=== PATIENT | female | born 1975 | race Caucasian/White ===

== ENCOUNTER → 2016-07-09 | Outpatient (CLI) | payer OTHER | LOC: KOH-I 16:38 | DX: M25.559 Pain in unspecified hip (principal) | CPT/HCPCS: 73522 ==

== ENCOUNTER 2020-05-09 20:06 | Emergency (ER) | payer OTHER ==
[~2020-05-09 20:06] MED LIST: FLAGYL500 MG PO; LEVOFLOXACIN500 MG PO; PHENERGAN 25 MG25 M1 PO; ZOFRAN4 MG PO
[2020-05-09 23:05] LABS: HEMOGLOBIN 14.2 gm/dl (12.3-15.3); RED BLOOD COUNT 4.51 M/UL (4.00-5.10); WHITE BLOOD COUNT 5.3 K/UL (4.5-11.0)
[2020-05-09 23:23] LABS: BUN/CREATININE RATIO 19 (0-10)
[2020-05-15] MEDS ORDERED: DOXYCYCLINE HY100 MG PO (14:39)
[2020-05-15] MEDS ORDERED: DECADRON6 MG PO (14:39)
== END 2020-05-10 04:52 | disposition home or self-care (01) ==
LOC: ER1 20:06
PROVIDERS: Emergency Medicine
DX: U07.1 COVID-19 (principal); Z88.2 Allergy status to sulfonamides; Z88.5 Allergy status to narcotic agent
CPT/HCPCS: 71045; 80053; 82550; 82553; 83874; 83880; 84484; 84703; 85025; 85379; 93005; 96374; 96375; 99285; J1885; J2405; J7030; M0239; Q9967

== ENCOUNTER 2020-05-13 14:27 | Inpatient (IN) | payer OTHER ==
[~2020-05-13] VITALS: Ht 154.9 cm; Wt 82.6 kg
[2020-05-13 15:31] LABS: HEMOGLOBIN 14.6 gm/dl (12.3-15.3); RED BLOOD COUNT 4.62 M/UL (4.00-5.10); WHITE BLOOD COUNT 3.7 K/UL (4.5-11.0)
[2020-05-13 15:53] LABS: BUN/CREATININE RATIO 15 (0-10)
[2020-05-13] MEDS ORDERED: CYMBALTA60 MG PO (19:08)
[2020-05-13] MEDS ORDERED: FOLIC ACID 1 MG1 MG PO (19:09)
[2020-05-13] MEDS ORDERED: VENTOLIN HFA 66.7 GM INH (19:09)
[2020-05-13] MEDS ORDERED: LISINOPRIL-HCT1 EAC2 PO (19:10)
[2020-05-13] MEDS ORDERED: TIZANIDINE HCL4 M1 PO (19:10)
[2020-05-13] MEDS ORDERED: DESYREL 50 MG T50 MG PO (19:11)
[2020-05-13] MEDS ORDERED: HUMIRA40 MG/0.8 SQ (19:11)
[2020-05-13] MEDS ORDERED: METHOTREXATE T2.5 MG PO (19:12)
[2020-05-14 06:23] LABS: WHITE BLOOD COUNT 3.1 K/UL (4.5-11.0)
[2020-05-14 06:24] LABS: HEMOGLOBIN 12.5 gm/dl (12.3-15.3); RED BLOOD COUNT 3.97 M/UL (4.00-5.10)
[2020-05-14 06:52] LABS: BUN/CREATININE RATIO 11 (0-10)
[2020-05-14] MEDS ORDERED: LEXAPRO20 MG PO (11:47)
[2020-05-14] MEDS ORDERED: PREMARIN1.25 MG PO (11:48)
[2020-05-14] MEDS ORDERED: LISINOPRIL10 MG PO (11:54)
--- NOTE | 2020-05-15 03:10 | NUR ---
2200-PATIENT BP WAS 62/38 WITH HEART RATE OF 71, PATIENT HAD A TEMP OF 99.2, PATIENT WAS GIVEN HER NIGHT TIME MEDS AROUND 2100 THAT CONSISTED OF VIT C, ZANAFLEX, TRAZODONE.SHE WAS DIAPHORETIC AND HAD BEEN COUGHING. BP EARLIER WAS 123/78. I NOTIFIED DR VALDEZ AND SHE SAID TO GIVE PATIENT A 1L BOLUS. PATIENT WAS ALSO PUT IN [place] POSITION. RECHECKED PATIENT BP AFTER GIVING BOLUS AND IT WAS 92/72. 0230-ROUND 3 OF VITALS AND PATIENTS BP HAD DROPPED BACK DOWN TO 80/54, HR 65. I NOTIFIED DR VALDEZ AND SHE ORDERED A SECOND BOLUS OF FLUIDS ON PATIENT. I WAITED 30 MINTUES AND RECHECK BP. IT WAS 79/40 MANUALLY. PATIENT HAD NO COMPLAINTS OTHER THAN SOME DIZZINESS WHEN SHE STANDS. I NOTIFIED DR VALDEZ AGAIN AND SHE SAID TO TRANSFER PATIENT AND START ON LEVOPHED DRIP.
[2020-05-15 04:32] LABS: HEMOGLOBIN 12.6 gm/dl (12.3-15.3)
[2020-05-15 04:38] LABS: WHITE BLOOD COUNT 10.6 K/UL (4.5-11.0)
[2020-05-15 04:57] LABS: BUN/CREATININE RATIO 16 (0-10)
[2020-05-15] MEDS ORDERED: DECADRON6 MG PO (14:39)
[2020-05-15] MEDS ORDERED: DOXYCYCLINE HY100 MG PO (14:39)
== END 2020-05-15 16:48 | disposition home or self-care (01) | DRG 177 ==
LOC: ER1 14:27 → MED SURG 4 17:08 → CDU 17:08 → MED SURG 4 20:25 → PROG CARE 05-15 03:52
PROVIDERS: Family Medicine; ADMIT Internal Medicine
PROC: 8E0ZXY6 Isolation (ICD-10-PCS; principal; 2020-05-13)
PROC: XW033E5 Introduction of Remdesivir Anti-infective into Peripheral Vein, Percutaneous Approach, New Technology Group 5 (ICD-10-PCS; 2020-05-13)
DX: U07.1 COVID-19 (principal); J12.82 Pneumonia due to coronavirus disease 2019; J96.01 Acute respiratory failure with hypoxia; E87.2 Acidosis; I10 Essential (primary) hypertension; E66.9 Obesity, unspecified; M13.80 Other specified arthritis, unspecified site; M79.7 Fibromyalgia; I95.9 Hypotension, unspecified; Z79.899 Other long term (current) drug therapy; Z68.34 Body mass index [BMI] 34.0-34.9, adult; Z88.5 Allergy status to narcotic agent
CPT/HCPCS: 36415; 71045; 71250; 80048; 80053; 80202; 82550; 82553; 82728; 83605; 83615; 83874; 84484; 84703; 85025; 85379; 86140; 90471; 93005; 96365; 96367; 96375; 99285; J0692; J0696; J1100; J1650; J2405; J2550; J3370; J7030; J7070; U0002

== ENCOUNTER → 2020-06-02 | Outpatient (CLI) | payer OTHER ==
[~2020-06-02] MED LIST changes: +CYMBALTA60 MG PO; +DECADRON6 MG PO; +DESYREL 50 MG T50 MG PO; +DOXYCYCLINE HY100 MG PO; +FOLIC ACID 1 MG1 MG PO; +HUMIRA40 MG/0.8 SQ; +LEXAPRO20 MG PO; +LISINOPRIL-HCT1 EAC2 PO; +LISINOPRIL10 MG PO; +METHOTREXATE T2.5 MG PO; +PREMARIN1.25 MG PO; +TIZANIDINE HCL4 M1 PO; +VENTOLIN HFA 66.7 GM INH
== END ==
LOC: KOH-I 12:39
DX: G43.109 Migraine with aura, not intractable, without status migrainosus (principal)
CPT/HCPCS: 70551

== ENCOUNTER → 2020-08-18 | Outpatient (CLI) | payer OTHER | LOC: KOH-I 12:03 | DX: M79.672 Pain in left foot (principal) | CPT/HCPCS: 73620 ==

== ENCOUNTER → 2021-02-02 | Outpatient (CLI) | payer OTHER | LOC: MAMO 08:30 | DX: Z12.31 Encounter for screening mammogram for malignant neoplasm of breast (principal); N63.0 Unspecified lump in unspecified breast | CPT/HCPCS: 77063; 77067 ==

== ENCOUNTER → 2021-02-13 | Outpatient (CLI) | payer OTHER | LOC: US 13:54 | DX: R92.8 Other abnormal and inconclusive findings on diagnostic imaging of breast (principal) | CPT/HCPCS: 76641-RT ==